=== PATIENT | male | born 1975 | race Caucasian/White ===

== ENCOUNTER 2019-04-22 07:57 | Day surgery (SDC) | payer OTHER ==
[2019-04-19 10:31] VITALS: BMI 46.7
[~2019-04-22 07:57] MED LIST: DEXAMETHASONE SOD PHOSPHATE 10 MG/ML 1 ML VIAL IV ONE; HEPARIN SODIUM,PORCINE 5,000 UNIT/ML 1 ML VIAL SQ ONE; LACTATED RINGERS 1,000 ML IV SCH; LIDOCAINE 1% 20 ML VIAL (10MG/ML) FOR IV START INTRADERMA PRN; MIDAZOLAM 2 MG/2 ML VIAL IV PRN; ONDANSETRON 4 MG/2 ML VIAL IVP ONE; ceFAZolin 3 GM in SODIUM CHLORIDE 0.9% 100 ML IVPB ONE
[2019-04-22] MEDS ORDERED: LACTATED RINGERS 1,000 ML IV ONE (08:24)
--- NOTE | 2019-04-22 09:02 | P.GSHP ---
History of Present Illness H&P Date: 04/22/19 Chief Complaint: Dysphagia This is a 43-year-old male with a previous history of laparoscopic adjustable gastric band. Patient had his band procedure performed [place]. He's had almost no follow-up. He is developed progressive dysphagia. Patient was seen at [facility] and found have evidence of a gastric prolapse and hiatal hernia. Patient presents today for laparoscopic removal of adjustable gastric band system. Past Medical History Past Medical History: Sleep Apnea/CPAP/BIPAP Additional Past Medical History / Comment(s): CPAP use, Hiatal Hernia. History of Any Multi-Drug Resistant Organisms: None Reported Past Surgical History: Bariatric Surgery, Hernia Repair, Tonsillectomy Past Anesthesia/Blood Transfusion Reactions: No Reported Reaction Past Psychological History: No Psychological Hx Reported Smoking Status: Former smoker Past Alcohol Use History: Rare Additional Past Alcohol Use History / Comment(s): Quit smoking 20 yrs ago. Past Drug Use History: None Reported - Past Family History Mother Family Medical History: No Reported History Medications and Allergies Home Medications Medication Instructions Recorded Confirmed Type No Known Home Medications 04/11/19 04/19/19 History Allergies Allergy/AdvReac Type Severity Reaction Status Date / Time No Known Allergies Allergy Verified 04/19/19 10:31 Surgical - Exam Vital Signs Temp Pulse Resp BP Pulse Ox 98.0 F 81 18 123/68 95 04/22/19 08:12 04/22/19 08:12 04/22/19 08:12 04/22/19 08:12 04/22/19 08:12 BMI 46 - General well developed, well nourished, no distress - Eyes PERRL - ENT normal pinna - Neck no masses - Respiratory normal expansion - Cardiovascular Rhythm: regular - Abdomen Abdomen: soft, non tender Assessment and Plan Assessment: Dysphagia secondary to adjustable gastric band. We'll perform removal laparoscopic of adjustable gastric band
[2019-04-22] MEDS ORDERED: PROPOFOL 10 MG/ML 20 ML VIAL IV ONE (09:16)
[2019-04-22] MEDS ORDERED: LIDOCAINE 1% INJ 10MG/ML (20 ML MDV) ONE (09:16)
[2019-04-22] MEDS ORDERED: GLYCOPYRROLATE 0.2 MG/ML 2 ML VIAL ONE (09:16)
[2019-04-22] MEDS ORDERED: ROCURONIUM BROMIDE 10 MG/ML 10 ML VIAL IV ONE (09:16)
[2019-04-22] MEDS ORDERED: fentaNYL (PF) 50 MCG/ML 2 ML AMP ONE (09:16)
[2019-04-22] MEDS ORDERED: SUCCINYLCHOLINE CHLORIDE VIAL 200 MG/10 ML VIAL IV ONE (09:16)
[2019-04-22] MEDS ORDERED: NEOSTIGMINE 1 MG/ML 10 ML VIAL ONE (09:16)
[2019-04-22] MEDS ORDERED: MIDAZOLAM 2 MG/2 ML VIAL ONE (09:16)
[2019-04-22] MEDS ORDERED: BUPIVACAIN-EPI 0.25%-1:200,000 30 ML VIAL SQ ONE (09:55)
--- NOTE | 2019-04-22 10:22 | P.OP ---
Date of Procedure: 04/22/19 Preoperative Diagnosis: Dysphagia Postoperative Diagnosis: Dysphagia Procedure(s) Performed: Laparoscopic removal of LAP-BAND system Anesthesia: GENO Surgeon: Royer Frazier Estimated Blood Loss (ml): 5 Pathology: none sent Condition: stable Disposition: PACU Description of Procedure: The patient's placed on the operative table in the supine position. The received general anesthesia. The abdomen was prepped and draped in the usual sterile fashion. The skin incision sites were anesthetized with 1% local Xylocaine. Using 11 blade the skin was incised the port site and then using blunt and sharp dissection and electrocautery LAP-BAND port was dissected free from the subcu taste tissues and fascia. The PEG tube was then cut and the LAP- BAND port was withdrawn from the patient. Next using a 15 mm trocar the peritoneal cavity is entered under direct visualization. The abdomen was insufflated and then the laparoscope placed back peritoneal cavity. A 5 mm trocar was placed in the right epigastric, right lateral and left lateral position. The left lateral lobe of liver was retracted. The LAP-BAND device was visualized. The adhesions to the lap band buckle within lysed using left cautery. The buckle was then freed and the buckle was undone and the LAP-BAND device was withdrawn from around the stomach. The device was brought up through the 15 mm trocar. There is no bleeding seen. There is no injury to the stomach or esophagus. The trochars withdrawn. The skin incision sites were closed with 3-0 Monocryl. Dermabond was applied. Patient was sent to recovery in stable condition.
[2019-04-22 10:26] VITALS: TEMP 97.4
[2019-04-22] MEDS: fentaNYL (PF) 50 MCG/ML 2 ML AMP IV PRN ×2 (10:42→10:49)
[2019-04-22] MEDS ORDERED: HYDROcodone/APAP 5-325MG 1 EACH TAB PO ONE (11:20)
[2019-04-22 11:22] VITALS: RESP 16
[2019-04-22 14:27] VITALS: BP 127/78; PULSE 72
== END 2019-04-22 14:34 | disposition home or self-care (01) ==
LOC: OR 07:57
PROVIDERS: ATTEND Surgery
DX: K95.09 Other complications of gastric band procedure (principal); R13.10 Dysphagia, unspecified; Z46.51 Encounter for fitting and adjustment of gastric lap band; K44.9 Diaphragmatic hernia without obstruction or gangrene; G47.33 Obstructive sleep apnea (adult) (pediatric); Z99.89 Dependence on other enabling machines and devices; Z87.891 Personal history of nicotine dependence; K31.89 Other diseases of stomach and duodenum
CPT/HCPCS: 43774; J2250; J0330; J1644; J1100; J2710; J0690; J2405; J2001; J3010; J2704

== ENCOUNTER 2019-06-25 01:00 | Emergency (ER) | payer OTHER ==
[2019-06-25 01:08] VITALS: RESP 18
[2019-06-25] MEDS ORDERED: KETOROLAC 30 MG/ML 1 ML VIAL IM STA (01:30)
--- NOTE | 2019-06-25 02:20 | XR ---
EXAM: XR Right Knee, 3 views CLINICAL HISTORY: ITS.REASON XR Reason: Pain TECHNIQUE: Three views of the right knee. COMPARISON: None. FINDINGS: Bones/joints: Moderate suprapatellar joint effusion. Eccentric, cortically-based lucent lesion in the lateral femoral metaphysis with thin sclerotic border most likely represents a fibrous cortical defect. No acute fracture. No dislocation. Soft tissues: Unremarkable. IMPRESSION: 1. No acute osseous abnormality. 2. Moderate suprapatellar joint effusion. Consider evaluation with MRI if there is clinical concern for internal derangement. 3. Eccentric, cortically-based lucent lesion in the lateral femoral metaphysis with thin sclerotic border most likely represents a fibrous cortical defect.
--- NOTE | 2019-06-25 02:42 | ED ---
Lower Extremity Injury HPI - General Chief Complaint: Extremity Injury, Lower Stated Complaint: knee pain Time Seen by Provider: 06/25/19 01:12 Source: patient Mode of arrival: ambulatory Limitations: no limitations - History of Present Illness Initial Comments: 43-year-old male patient presents to the emergency department today for evaluation of right knee pain and swelling. Patient states a few hours ago he jumped off the back of a boat approximately 3-4 feet down causing injury to his right knee. Patient states he feels that the knee may have strained laterally. He denies any dislocation. States that he initially had pain however was able to ambulate. Patient states once he rested for a couple of hours he noticed that the knee had become swollen and ambulation was more difficult. Denies any numbness or tingling to the extremity. Denies any history of knee injury or surgery. He denies any falls or other injury. Patient denies any headache, neck pain, back pain, chest pain, shortness of breath, dizziness, weakness, abdominal pain, nausea, vomiting, or difficulties with bowel movements or urination. - Related Data Previous Rx's Medication Instructions Recorded Docusate [Colace] 100 mg PO BID #20 capsule 04/22/19 HYDROcodone/APAP 5-325MG [[place] 1 tab PO Q6HR PRN #10 tab 04/22/19 5-325] Allergies Allergy/AdvReac Type Severity Reaction Status Date / Time No Known Allergies Allergy Verified 04/19/19 10:31 Review of Systems ROS Statement: Those systems with pertinent positive or pertinent negative responses have been documented in the HPI. ROS Other: All systems not noted in ROS Statement are negative. Past Medical History Past Medical History: Sleep Apnea/CPAP/BIPAP Additional Past Medical History / Comment(s): CPAP use, Hiatal Hernia. History of Any Multi-Drug Resistant Organisms: None Reported Past Surgical History: Bariatric Surgery, Hernia Repair, Tonsillectomy Past Anesthesia/Blood Transfusion Reactions: No Reported Reaction Past Psychological History: No Psychological Hx Reported Smoking Status: Former smoker Past Alcohol Use History: Rare Past Drug Use History: None Reported - Past Family History Mother Family Medical History: No Reported History General Exam Limitations: no limitations General appearance: alert, in no apparent distress, other (Physical well- developed, well-nourished adult male patient in no acute distress. Vital signs upon presentation are temperature 97.9F, pulse 73, respirations 18, blood pressure 126/77, pulse ox 100% on room air.) Eye exam: Present: normal appearance, PERRL, EOMI. Absent: scleral icterus, conjunctival injection, periorbital swelling ENT exam: Present: normal exam, normal oropharynx, mucous membranes moist Respiratory exam: Present: normal lung sounds bilaterally. Absent: respiratory distress, wheezes, rales, rhonchi, stridor Cardiovascular Exam: Present: regular rate, normal rhythm, normal heart sounds. Absent: systolic murmur, diastolic murmur, rubs, gallop, clicks Extremities exam: Present: full ROM, tenderness (Tenderness over the anterior aspect of the knee), normal capillary refill, other (Patient is exhibiting soft tissue swelling surrounding the right knee. Patient has laxity and pain with valgus maneuver. Negative anterior drawer. Skin to the leg is pink, warm, dry. Cap refills less than 3 seconds. Pedal and posttibial pulses 2+ and equal bilaterally.). Absent: normal inspection, pedal edema, joint swelling, calf tenderness Neurological exam: Present: alert, oriented X3, CN II-XII intact Psychiatric exam: Present: normal affect, normal mood Skin exam: Present: warm, dry, intact, normal color. Absent: rash Course Vital Signs 06/25/19 06/25/19 01:05 03:30 Temperature 97.9 F 97.6 F Pulse Rate 73 62 Respiratory 18 18 Rate Blood Pressure 126/77 123/76 O2 Sat by Pulse 100 97 Oximetry Medical Decision Making - Medical Decision Making 43-year-old male patient presented to the emergency department today for evaluation of right knee injury. Physical examination did reveal soft tissue swelling surrounding the right knee. He did have pain and laxity with valgus maneuver. Neurovascular status was intact. X-ray showed suprapatellar joint effusion and a sclerotic lesion over the distal femur. I did discuss findings and results with the patient. We did discuss ligamentous injury as a cause for his symptoms. He was placed in a knee immobilizer. He is given prescription for crutches instructed to follow-up with clinical implementation specialist for further evaluation as soon as possible. He is instructed to take home pain medications for symptom relief. He is educated regarding rest, ice, elevation. Return parameters were discussed in detail. He verbalizes understanding and agrees with this plan. - Radiology Data Radiology results: report reviewed, image reviewed 3 views of the right knee are obtained. Report was reviewed in its entirety. Impression by Dr. Whitehead shows no acute osseous abnormality. There is moderate suprapatellar joint effusion. Eccentric, cortically based lucent lesion in the lateral femoral metaphysis within sclerotic border most likely represents a fibrous cortical defect. Disposition Clinical Impression: Internal derangement of right knee Disposition: HOME SELF-CARE Condition: Good Instructions (If sedation given, give patient instructions): Swollen Knee Joint (ED), Knee Pain (ED) Additional Instructions: Rest, ice, elevate the right knee. Use knee immobilizer when ambulating. Use crutches to assist with ambulation. Take home pain medication including ibuprofen and [place] for pain control. Follow-up with clinical implementation specialist for recheck as soon as possible. Return to the emergency department immediately for any new, worsening, or concerning symptoms. Is patient prescribed a controlled substance at d/c from ED?: No Referrals: Darin Lu MD [Primary Care Provider] - 1-2 days Time of Disposition: 02:42
[2019-06-25 03:31] VITALS: BP 123/76; PULSE 62; TEMP 97.6
== END 2019-06-25 03:38 | disposition home or self-care (01) ==
LOC: EC 01:00
DX: S89.91XA Unspecified injury of right lower leg, initial encounter (principal); G47.30 Sleep apnea, unspecified; Z99.89 Dependence on other enabling machines and devices; Z87.891 Personal history of nicotine dependence; W17.89XA Other fall from one level to another, initial encounter; Y93.39 Activity, other involving climbing, rappelling and jumping off
CPT/HCPCS: 73562; 99283; 96372; L1830; J1885

== ENCOUNTER 2020-10-04 23:38 | Emergency (ER) | payer OTHER ==
[2020-10-04 23:57] VITALS: RESP 18
[2020-10-05] MEDS ORDERED: SODIUM CHLORIDE 0.9% 1,000 ML IV STA (00:24)
[2020-10-05] MEDS ORDERED: IOPAMIDOL CONTRAST (ORAL USE) VIAL PO PRN (00:24)
[2020-10-05 00:53] LABS: Appearance,Urine Clear (Clear); Basophils # (A) 0.1 k/uL (0-0.2); Basophils % (A) 1 %; Bilirubin,Urine Negative (Negative); Blood,Urine Negative (Negative); Color,Urine Yellow; Eosinophils # (A) 0.3 k/uL (0-0.7); Eosinophils % (A) 4 %; Glucose,Urine (UA) Negative (Negative); HCT 45.1 % (39.0-53.0); HGB 15.6 gm/dL (13.0-17.5); Ketones,Urine Negative (Negative); Leukocyte Esterase,Urine Negative (Negative); Lymphocytes # (A) 2.6 k/uL (1.0-4.8); Lymphocytes % (A) 28 %; MCH 30.7 pg (25.0-35.0); MCHC 34.7 g/dL (31.0-37.0); MCV 88.6 fL (80.0-100.0); Mean Platelet Volume 6.4; Monocytes # (A) 0.4 k/uL (0-1.0); Monocytes % (A) 5 %; Neutrophils # (A) 5.6 k/uL (1.3-7.7); Neutrophils % (A) 61 %; Nitrite,Urine Negative (Negative); Platelet Count 264 k/uL (150-450); Protein,Urine Negative (Negative); RBC 5.09 m/uL (4.30-5.90); RDW 13.3 % (11.5-15.5); Specific Gravity,Urine 1.031 (1.001-1.035); Urobilinogen,Urine <2.0 mg/dL (<2.0); WBC 9.2 k/uL (3.8-10.6)
[2020-10-05 01:06] LABS: ALT 31 U/L (4-49); AST 29 U/L (17-59); African American GFR (CKD) >90 (>60 ml/min/1.73 sqM); Albumin 4.5 g/dL (3.5-5.0); Alkaline Phosphatase 86 U/L (38-126); Anion Gap 7 mmol/L; Blood Urea Nitrogen 18 mg/dL (9-20); Calcium 9.5 mg/dL (8.4-10.2); Carbon Dioxide 25 mmol/L (22-30); Chloride 106 mmol/L (98-107); Glucose 104 mg/dL (74-99); Lipase 111 U/L (23-300); Non-African American GFR(CKD) 81 (>60 ml/min/1.73 sqM); Potassium 4.5 mmol/L (3.5-5.1); Sodium 138 mmol/L (137-145); Total Bilirubin 0.5 mg/dL (0.2-1.3); Total Protein 7.6 g/dL (6.3-8.2)
--- NOTE | 2020-10-05 01:53 | CT ---
EXAM: CT Abdomen and Pelvis With Intravenous Contrast CLINICAL HISTORY: ITS.REASON CT Reason: abdominal pain TECHNIQUE: Axial computed tomography images of the abdomen and pelvis with intravenous contrast. CTDI is 81.784 mGy and DLP is 3798 mGy-cm. This CT exam was performed using one or more of the following dose reduction techniques: automated exposure control, adjustment of the mA and/or kV according to patient size, and/or use of iterative reconstruction technique. COMPARISON: No relevant prior studies available. FINDINGS: Lung bases: Unremarkable. No mass. No consolidation. ABDOMEN: Liver: Unremarkable. No mass. Gallbladder and bile ducts: Contracted gallbladder. No calcified stones. No ductal dilation. Pancreas: Unremarkable. No mass. No ductal dilation. Spleen: Unremarkable. No splenomegaly. Adrenals: Unremarkable. No mass. Kidneys and ureters: Unremarkable. No solid mass. No hydronephrosis. Stomach and bowel: Small sliding-type hiatal hernia. No bowel obstruction or inflammation. No bowel wall thickening. Incidentally noted duodenal diverticulum. PELVIS: Appendix: Normal appendix. Bladder: Normal urinary bladder. Reproductive: Normal prostate. ABDOMEN and PELVIS: Intraperitoneal space: No free fluid or free air. Bones/joints: No acute osseous findings. No dislocation. Soft tissues: Unremarkable. Vasculature: Unremarkable. No abdominal aortic aneurysm. Lymph nodes: Unremarkable. No enlarged lymph nodes. IMPRESSION: No acute process.
[2020-10-05] MEDS ORDERED: SULFAMETH-TMP DS STARTER PACK 2 TAB BTL PO STA (02:42)
[2020-10-05] MEDS ORDERED: SULFAMETHOX-TMP 800-160MG 1 EACH TAB PO STA (02:42)
[2020-10-05] MEDS ORDERED: cefTRIAXone IN SWFI 1,000 MG/10 ML SYRINGE IVP STA (02:42)
--- NOTE | 2020-10-05 02:42 | ED ---
General Adult HPI - General Chief complaint: Abdominal Pain Stated complaint: belly button injury Time Seen by Provider: 10/05/20 00:13 Source: patient, RN notes reviewed, old records reviewed Mode of arrival: ambulatory Limitations: no limitations - History of Present Illness Initial comments: 44-year-old male patient to ED for evaluation. Patient reports that he has had some discharge from has umbilicus. He states that he believes that he might of had some swelling around his umbilicus for the last week. He denies any other acute complaints. Denies any pain. Systemic: Pt denies fatigue, fever/chills, rash. Pt denies weakness, night sweats, weight loss. Neuro: Pt denies headache, visual disturbances, syncope or pre-syncope. HEENT: Pt denies ocular discharge or irritation, otalgia, rhinorrhea, pharyngitis or notable lymphadenopathy. Cardiopulmonary: Pt denies chest pain, SOB, heart palpitations, dyspnea on exertion. Abdominal/GI: Pt denies abdominal pain, n/v/d. : Pt denies dysuria, burning w/ urination, frequency/urgency. Denies new onset urinary or bowel incontinence. MSK: Pt denies myalgia, loss of strength or function in extremities. Neuro: Pt denies new onset weakness, paresthesias. - Related Data Previous Rx's Medication Instructions Recorded Docusate [Colace] 100 mg PO BID #20 capsule 04/22/19 HYDROcodone/APAP 5-325MG [[place] 1 tab PO Q6HR PRN #10 tab 04/22/19 5-325] Sulfamethox-Tmp 800-160Mg [Bactrim 1 tab PO Q12HR 10 Days #20 tab 10/05/20 DS 800-160 mg] Allergies Allergy/AdvReac Type Severity Reaction Status Date / Time No Known Allergies Allergy Verified 10/04/20 23:58 Review of Systems ROS Statement: Those systems with pertinent positive or pertinent negative responses have been documented in the HPI. ROS Other: All systems not noted in ROS Statement are negative. Past Medical History Past Medical History: Sleep Apnea/CPAP/BIPAP Additional Past Medical History / Comment(s): CPAP use, Hiatal Hernia. History of Any Multi-Drug Resistant Organisms: None Reported Past Surgical History: Bariatric Surgery, Hernia Repair, Tonsillectomy Past Anesthesia/Blood Transfusion Reactions: No Reported Reaction Past Psychological History: No Psychological Hx Reported Smoking Status: Former smoker Past Alcohol Use History: Rare Past Drug Use History: None Reported - Past Family History Mother Family Medical History: No Reported History General Exam - General Exam Comments Initial Comments: Constitutional: NAD, AOX3, Pt has pleasant affect. HEENT: NC/AT, trachea midline, neck supple, no lymphadenopathy. Posterior pharynx non erythematous, without exudates. External ears appear normal, without discharge. Mucous membranes moist. Eyes PERRLA, EOM intact. There is no scleral icterus. No pallor noted. Cardiopulmonary: RRR, no murmurs, rubs or gallops, no JVD noted. Lungs CTAB in anterior and posterior ackerman. No peripheral edema. Abdominal exam: Abdomen soft and non-distended. Abdomen non-tender to palpation in all 4 quadrants. Bowel sounds active in LLQ. No hepatosplenomegaly. No ecchymosis. Small amount of drainage from a small pustule in the umbilicus region, actively draining. Neuro: CN II-XII grossly intact. No nuchal rigidity. No raccon eyes, no rivas sign, no hemotympanum. No cervical spinal tenderness. MSK: Full active ROM in upper and lower extremities, 5/5 stregnth. Limitations: no limitations Course Vital Signs 10/04/20 23:53 Temperature 98.3 F Pulse Rate 88 Respiratory 18 Rate Blood Pressure 169/81 O2 Sat by Pulse 96 Oximetry Medical Decision Making - Medical Decision Making 44-year-old male patient to ED for evaluation of drainage from his umbilicus. 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 He never had surgery for this. CT abdomen and pelvis negative for acute process. He does appear to be a small pustule on exam. Patient will be placed on Bactrim drainage was cultured. Will follow up with primary care provider and return if any worsening symptoms. Case discussed with Dr. Cunha. - Lab Data Result diagrams: 10/05/20 00:31 10/05/20 00:31 Lab Results 10/05/20 10/05/20 10/05/20 Range/Units 00:31 00:31 00:31 WBC 9.2 (3.8-10.6) k/uL RBC 5.09 (4.30-5.90) m/uL Hgb 15.6 (13.0-17.5) gm/dL Hct 45.1 (39.0-53.0) % MCV 88.6 (80.0-100.0) fL MCH 30.7 (25.0-35.0) pg MCHC 34.7 (31.0-37.0) g/dL RDW 13.3 (11.5-15.5) % Plt Count 264 (150-450) k/uL MPV 6.4 Neutrophils % 61 % Lymphocytes % 28 % Monocytes % 5 % Eosinophils % 4 % Basophils % 1 % Neutrophils # 5.6 (1.3-7.7) k/uL Lymphocytes # 2.6 (1.0-4.8) k/uL Monocytes # 0.4 (0-1.0) k/uL Eosinophils # 0.3 (0-0.7) k/uL Basophils # 0.1 (0-0.2) k/uL Sodium 138 (137-145) mmol/L Potassium 4.5 (3.5-5.1) mmol/L Chloride 106 (98-107) mmol/L Carbon Dioxide 25 (22-30) mmol/L Anion Gap 7 mmol/L BUN 18 (9-20) mg/dL Creatinine 1.10 (0.66-1.25) mg/dL Est GFR (CKD-EPI)AfAm >90 (>60 ml/min/1.73 sqM) Est GFR (CKD-EPI)NonAf 81 (>60 ml/min/1.73 sqM) Glucose 104 H (74-99) mg/dL Plasma Lactic Acid Tristan (0.7-2.0) mmol/L Calcium 9.5 (8.4-10.2) mg/dL Total Bilirubin 0.5 (0.2-1.3) mg/dL AST 29 (17-59) U/L ALT 31 (4-49) U/L Alkaline Phosphatase 86 (38-126) U/L Total Protein 7.6 (6.3-8.2) g/dL Albumin 4.5 (3.5-5.0) g/dL Lipase 111 (23-300) U/L Urine Color Yellow Urine Appearance Clear (Clear) Urine pH 6.0 (5.0-8.0) Ur Specific Draper 1.031 (1.001-1.035) Urine Protein Negative (Negative) Urine Glucose (UA) Negative (Negative) Urine Ketones Negative (Negative) Urine Blood Negative (Negative) Urine Nitrite Negative (Negative) Urine Bilirubin Negative (Negative) Urine Urobilinogen <2.0 (<2.0) mg/dL Ur Leukocyte Esterase Negative (Negative) 10/05/20 Range/Units 00:31 WBC (3.8-10.6) k/uL RBC (4.30-5.90) m/uL Hgb (13.0-17.5) gm/dL Hct (39.0-53.0) % MCV (80.0-100.0) fL MCH (25.0-35.0) pg MCHC (31.0-37.0) g/dL RDW (11.5-15.5) % Plt Count (150-450) k/uL MPV Neutrophils % % Lymphocytes % % Monocytes % % Eosinophils % % Basophils % % Neutrophils # (1.3-7.7) k/uL Lymphocytes # (1.0-4.8) k/uL Monocytes # (0-1.0) k/uL Eosinophils # (0-0.7) k/uL Basophils # (0-0.2) k/uL Sodium (137-145) mmol/L Potassium (3.5-5.1) mmol/L Chloride (98-107) mmol/L Carbon Dioxide (22-30) mmol/L Anion Gap mmol/L BUN (9-20) mg/dL Creatinine (0.66-1.25) mg/dL Est GFR (CKD-EPI)AfAm (>60 ml/min/1.73 sqM) Est GFR (CKD-EPI)NonAf (>60 ml/min/1.73 sqM) Glucose (74-99) mg/dL Plasma Lactic Acid Tristan 1.1 (0.7-2.0) mmol/L Calcium (8.4-10.2) mg/dL Total Bilirubin (0.2-1.3) mg/dL AST (17-59) U/L ALT (4-49) U/L Alkaline Phosphatase (38-126) U/L Total Protein (6.3-8.2) g/dL Albumin (3.5-5.0) g/dL Lipase (23-300) U/L Urine Color Urine Appearance (Clear) Urine pH (5.0-8.0) Ur Specific Draper (1.001-1.035) Urine Protein (Negative) Urine Glucose (UA) (Negative) Urine Ketones (Negative) Urine Blood (Negative) Urine Nitrite (Negative) Urine Bilirubin (Negative) Urine Urobilinogen (<2.0) mg/dL Ur Leukocyte Esterase (Negative) Disposition Clinical Impression: Skin pustule Disposition: HOME SELF-CARE Condition: Stable Instructions (If sedation given, give patient instructions): Cellulitis (ED) Additional Instructions: Keep area clean and dry. Take antibiotic as directed. Return for any worsening symptoms. Prescriptions: Sulfamethox-Tmp 800-160Mg [Bactrim DS 800-160 mg] 1 tab PO Q12HR 10 Days #20 tab Is patient prescribed a controlled substance at d/c from ED?: No Referrals: Darin Lu MD [Primary Care Provider] - 1-2 days
[2020-10-05 03:01] VITALS: BP 146/87; PULSE 70; TEMP 98.7
== END 2020-10-05 03:01 | disposition home or self-care (01) ==
LOC: EC 23:38
DX: L08.9 Local infection of the skin and subcutaneous tissue, unspecified (principal); G47.33 Obstructive sleep apnea (adult) (pediatric); Z87.891 Personal history of nicotine dependence; Z99.89 Dependence on other enabling machines and devices
CPT/HCPCS: 36415; 80053; 83605; 83690; 85025; 81003; 87070; 87205; 74177; 99284; 96374; 96361; J0696; Q9967 ×2

== ENCOUNTER → 2020-10-19 | Outpatient (CLI) | payer OTHER ==
--- NOTE | 2020-10-19 16:41 | FL ---
EXAMINATION TYPE: FL fistulogram DATE OF EXAM: 10/19/2020 CLINICAL DATA: 44-year-old male drainage and bleeding from umbilicus, improved after antibiotic, pat ient reports a similar history back in 2002. [facility] COMPARISON: Correlation CT 10/05/2020 Total images: 5. Total fluoroscopy time: 1 minute. FINDINGS: Chief Operator Reformer image was taken in the lateral projection of the anterior abdomen centered at the umbilicus. A 5 Kinyarwanda feeding tube was inserted into the umbilicus. We were unable to further advance the feedin g tube with extensive probing. The feeding tube was held tightly in place with gauze. Forceful inject ion of 15 mL [id number]-300 showed opacification of the catheter and then spillage into the preumbilical region and soaking of the gauze. A fine linear extension of contrast initially noted measuring approx imately 2 cm long corresponds to the catheter itself rather than a tract. No abnormal contrast extension toward the abdominal wall musculature or within the intra-abdominal sp aurelio. IMPRESSION: Unable to demonstrate an umbilical sinus or fistula tract after forceful injection of [address] into the umbilicus.
== END | disposition home or self-care (01) ==
LOC: RADFLMAIN 10:59
PROVIDERS: ATTEND Family Medicine
DX: K31.6 Fistula of stomach and duodenum (principal); R19.8 Other specified symptoms and signs involving the digestive system and abdomen
CPT/HCPCS: 20501; 76080; Q9967